=== PATIENT | male | born 1970 | race African-American/Black ===

== ENCOUNTER 2016-12-14 05:37 | Emergency (ER) | payer SELFPAY ==
[~2016-12-14] VITALS: Ht 172.7 cm; Wt 109.0 kg
[~2016-12-14 05:37] MED LIST: ASPIR 8181 M1 PO; LIPITOR10 MG PO; LIPITOR40 MG PO; MULTIPLE VITAM1 EACH PO
[2016-12-14 05:40] VITALS: BP 107/78
[2016-12-14] MEDS ORDERED: TYLENOL WITH C1 EACH PO (07:31)
== END 2016-12-14 08:25 | disposition home or self-care (01) ==
LOC: EME 05:37
PROC: 2W3QX1Z Immobilization of Right Lower Leg using Splint (ICD-10-PCS; principal; 2016-12-14)
DX: S40.011A Contusion of right shoulder, initial encounter (principal); M25.571 Pain in right ankle and joints of right foot; S90.31XA Contusion of right foot, initial encounter; W17.89XA Other fall from one level to another, initial encounter
CPT/HCPCS: 72100; 73030; 73610; 73630; 99281; 99283